=== PATIENT | male | born 1945 | race Hispanic/Latino ===

== ENCOUNTER 2017-08-05 18:02 | Emergency (ER) | payer OTHER ==
[2017-08-05 18:03] VITALS: BMI 28.3
[2017-08-05 18:22] VITALS: O2SAT 98
--- NOTE | 2017-08-05 19:45 | C.PDOC ---
History Of Present Illness 71 y/o male brought to ED by ambulance for intoxication. Patient admits to beer and has had many prior evaluations for similar complaints. Denies any physical complaints. Time Seen by Provider: 08/05/17 18:23 Chief Complaint (Nursing): Substance Abuse History Per: Patient History/Exam Limitations: no limitations Onset/Duration Of Symptoms: Hrs Current Symptoms Are (Timing): Still Present Suicide/Self Injury Attempted (Context): None Modifying Factor(s): Alcohol Associated Symptoms: denies: Anger, Suicidal Thoughts Involuntary Hold By: None Recent travel outside of the [place]: No Past Medical History Reviewed: Historical Data, Nursing Documentation, Vital Signs Vital Signs: Last Vital Signs Temp 97.8 F 08/05/17 18:21 Pulse 85 08/05/17 18:21 Resp 18 08/05/17 18:21 BP 154/88 H 08/05/17 18:21 Pulse Ox 98 08/05/17 19:46 - Medical History PMH: Arthritis, CAD, CHF, Depression, Diabetes (type 2), HTN, Hypercholesterolemia, Hyperlipidemia Surgical History: CABG - [facility] Procedures DILATE L FEM ART W DRUG-ELUT INTRALUM, DRUG BLLN, PERC (05/27/15) EXTIRPATION OF MATTER FROM L FEM ART, PERC APPROACH (05/27/15) INJECT/INFUSE NEC (02/19/14) INTRODUCTION OF SERUM/TOX/VACCINE INTO MUSCLE, PERC APPROACH (03/17/16) NEBULIZER THERAPY (07/27/14) Family History: States: Unknown Family Hx - Social History Hx Alcohol Use: Yes Hx Substance Use: No - Immunization History Hx Tetanus Toxoid Vaccination: No Hx Influenza Vaccination: No Hx Pneumococcal Vaccination: No Review Of Systems Constitutional: Negative for: Fever, Chills Cardiovascular: Negative for: Chest Pain, Palpitations Respiratory: Negative for: Shortness of Breath Gastrointestinal: Negative for: Nausea, Vomiting, Diarrhea Neurological: Negative for: Weakness, Numbness Psych: Negative for: Suicidal ideation Physical Exam - Physical Exam Appears: Well, Non-toxic, No Acute Distress, Other (Intoxicated) Skin: Normal Color, Warm, Dry Head: Atraumatic, Normacephalic Eye(s): bilateral: Normal Inspection Oral Mucosa: Moist Neck: Supple Chest: Symmetrical, No Tenderness Cardiovascular: Rhythm Regular Respiratory: Normal Breath Sounds, No Decreased Breath Sounds, No Rales, No Rhonchi, No Wheezing Gastrointestinal/Abdominal: Soft, No Tenderness, No Distention Neurological/Psych: Oriented x3, Normal Speech, Normal Cognition ED Course And Treatment O2 Sat by Pulse Oximetry: 98 (RA) Pulse Ox Interpretation: Normal Reevaluation Time: 19:53 Reassessment Condition: Improved (stable gait, wants d/c to home.) Medical Decision Making Medical Decision Making: typical etoh abuse @ home. no new issues. Disposition Doctor Will See Patient In The: Office Counseled Patient/Family Regarding: Studies Performed, Diagnosis - Disposition Disposition: HOME/ ROUTINE Disposition Time: 19:54 Condition: GOOD Forms: [employer] (Maori) - Clinical Impression Clinical Impression: Alcohol abuse - Scribe Statement The provider has reviewed the documentation as recorded by the Scribirma Grossman All medical record entries made by the Migdaliaibe were at my direction and personally dictated by me. I have reviewed the chart and agree that the record accurately reflects my personal performance of the history, physical exam, medical decision making, and the department course for this patient. I have also personally directed, reviewed, and agree with the discharge instructions and disposition.
[2017-08-05 20:02] VITALS: BP 135/69; PULSE 79; RESP 16; TEMP 98
== END 2017-08-05 21:10 | disposition home or self-care (01) ==
LOC: C.ER 18:02
DX: F10.10 Alcohol abuse, uncomplicated (principal); Y90.9 Presence of alcohol in blood, level not specified; E11.9 Type 2 diabetes mellitus without complications